=== PATIENT | male | born 1985 | race Caucasian/White ===

== ENCOUNTER 2021-03-17 21:02 | Emergency (ER) | payer BC, OTHER ==
[~2021-03-17] VITALS: Ht 172.7 cm; Wt 67.1 kg
[2021-03-17] MEDS ORDERED: LORazepam 0.5 MG (ATIVAN) TABLET PO STA (21:10)
[2021-03-17 21:11] VITALS: BP 141/90
--- NOTE | 2021-03-17 21:39 | Diagnostic Imaging Report ---
INDICATION: Shortness of breath and chest pain. Frontal chest obtained at 9:06 hours p.m. Heart and mediastinal silhouette are normal in appearance. The lungs are clear. There is no pneumothorax or pleural fluid. IMPRESSION: Negative chest. Dictated by: Dictated on workstation # [id number]
--- NOTE | 2021-03-17 21:42 | ED Chest Pain ---
General Chief Complaint: Chest Wall Stated Complaint: CHEST PAIN; SOB Nursing Triage Note: Pt states chest pain started 1.5 hrs ago with soa and facial numbness. Pt does state he is in the middle of a custody joyner and has been stressed. Pt noted to be hyperventilating and instructed to relax and deep breathe Nursing Sepsis Screen: No Definite Risk Source: patient Exam Limitations: no limitations History of Present Illness Date Seen by Provider: Mar 17, 2021 Time Seen by Provider: 21:05 Initial Comments Patient is a 35-year-old male who presents with substernal chest pain and shortness of breath. Symptoms began 90 minutes ago while driving. Patient was reports numbness around his lips and tingling and cramping in his hands. Patient states he has been under some acute anxiety over child custody issues and is in the process of changing custody of his daughter when symptoms began this evening. He reports chest pain with chest tightness difficulty breathing and dizziness.. Not fever cough, sore throat, abdominal pain, leg pain or swelling. Does not fevers chills or sweats. Other than a smoker. He denies history of asthma or chronic lung disease. No history of coronary disease, CHF or other cardiac related abnormalities. No other acute symptoms or complaints. Timing/Duration: 1-3 hours Severity/Quality: moderate Location: substernal Radiation: other Activities at Onset: other Prior CP/Workup: other Modifying Factors: improves with other Associated Symptoms: shortness of breath Allergies and Home Medications Allergies Coded Allergies: No Known Drug Allergies (Unverified , 03/17/21) Home Medications Lorazepam 2 Mg Tablet, 2 MG PO Q4H PRN for ANXIETY Prescribed by: HUGO BAUER on 03/17/212142 Last Action: New Order Patient Home Medication List Home Medication List Reviewed: Yes Review of Systems Review of Systems Constitutional: see HPI EENTM: See HPI Respiratory: See HPI Cardiovascular: See HPI Gastrointestinal: See HPI Genitourinary: See HPI Musculoskeletal: see HPI Skin: see HPI Psychiatric/Neurological: See HPI Endocrine: See HPI Hematologic/Lymphatic: See HPI All Other Systems Reviewed Negative Unless Noted: Yes Past Iohfleq-Yxitoy-Zbubus Hx Past Med/Social Hx: Reviewed Nursing Past Med/Soc Hx Patient Social History Alcohol Use: Occasionally Uses Smoking Status: Current Everyday Smoker Type Used: Cigarettes 2nd Hand Smoke Exposure: No Recent Infectious Disease Expo: No Recent Hopitalizations: No Seasonal Allergies Seasonal Allergies: No Past Medical History Surgeries: Yes (abscess) Respiratory: No Cardiac: No Neurological: No Genitourinary: No Gastrointestinal: No Musculoskeletal: No Endocrine: No HEENT: No Cancer: No Psychosocial: No Integumentary: No Blood Disorders: No Physical Exam Vital Signs Vital Signs - First Documented 03/17/21 21:11 Temp 36.4 Pulse 90 Resp 16 B/P (MAP) 141/90 (107) Pulse Ox 100 O2 Delivery Room Air Capillary Refill : Less Than 3 Seconds Height, Weight, BMI Height: '" Weight: lbs. oz. kg; 22.00 BMI Method: General Appearance: No Apparent Distress, Anxious HEENT: PERRL/EOMI, Normal ENT Inspection, Pharynx Normal Respiratory: Chest Non Tender, Lungs Clear, Normal Breath Sounds, No Accessory Muscle Use Cardiovascular: Regular Rate, Rhythm, No Edema Gastrointestinal: Normal Bowel Sounds, Soft Extremity: No Calf Tenderness, No Pedal Edema Neurologic/Psychiatric: Oriented x3, No Motor/Sensory Deficits, engraver optical frames II-XII Norm as Tested Focused Exam Sepsis Stage: Ruled Out Progress/Results/Core Measures Results/Orders My Orders Orders - HUGO BAUER DO Lorazepam Tablet (Ativan Tablet) (03/17/21 21:10) Chest 1 View Ap/Pa Only (03/17/21 21:10) Ekg Tracing (03/17/21 21:17) Vital Signs/I&O 03/17/21 21:11 Temp 36.4 Pulse 90 Resp 16 B/P (MAP) 141/90 (107) Pulse Ox 100 O2 Delivery Room Air Blood Pressure Mean: 107 Departure Communication (Admissions) EK03/17/2021 normal sinus rhythm, no acute ST-T wave changes. Patient with anxiety attack with hyperventilation syndrome. Symptoms fully resolved in the ED with treatment of Ativan. EKG chest x-ray otherwise unremarkable. Recommend supportive care with PCP follow-up. Return precautions reviewed. Patient verbalizes understanding agreement with discharge instructions prior to departure. Impression Primary Impression: Anxiety state Additional Impression: Acute hyperventilation syndrome Disposition: HOME, SELF-CARE Condition: Stable Departure-Patient Inst. Decision time for Depature: 21:41 Referrals: KEN MCCLENDON APRN (PCP) Primary Care Physician [facility] (Family) Primary Care Physician Patient Instructions: Anxiety, Adult (DC), Hyperventilation Add. Discharge Instructions: Please go home and rest. Take Ativan as needed and prescribed if symptoms recur. Do not attempt to drive or perform any other potential dangerous activities for several hours after taking Ativan. Follow-up with your PCP for further evaluation and management. Return to the ED if new or concerning symptoms. All discharge instructions reviewed with patient and/or family. Voiced understanding. Scripts Lorazepam (Ativan) 2 Mg Tablet 2 MG PO Q4H PRN for ANXIETY for 7 Days, #10 TAB Prov: HUGO BAUER DO 03/17/21 HUGO BAUER DO Mar 17, 2021 21:42
[2021-03-17] MEDS ORDERED: LORA-407 PO (21:43)
== END 2021-03-17 21:45 | disposition home or self-care (01) ==
LOC: ER FS 21:06
DX: F41.9 Anxiety disorder, unspecified (principal); F45.8 Other somatoform disorders; F17.210 Nicotine dependence, cigarettes, uncomplicated
CPT/HCPCS: 71045; 93005

== ENCOUNTER 2021-06-20 21:41 | Emergency (ER) | payer SELFPAY ==
[~2021-06-20 21:41] MED LIST: LORA-407 PO
[2021-06-20] MEDS ORDERED: KETOROLAC 30 MG/ML VIAL IVP ONE (22:00)
[2021-06-20] MEDS ORDERED: NS IV 1000 ML 1,000 ML IV SCH ×2 (22:00→22:45)
--- NOTE | 2021-06-20 22:04 | ED GU-Male ---
General Chief Complaint: - Urinary Stated Complaint: RT TESTICLE AND BACK PAIN, URINATING BLOOD Nursing Triage Note: Pt complaining of right flank pain with blood in his urine Source: patient Exam Limitations: no limitations History of Present Illness Date Seen by Provider: Jun 20, 2021 Time Seen by Provider: 21:48 Initial Comments Patient is a 36-year-old male who presents to the emergency room with a chief complaint of right flank pain onset today radiating down into his right testicle and urinating blood this evening. Patient tells me he has had a history of right testicular pain in the past with history of an epididymal cyst removal. He states he mckeon has pain at a "7" right now but when it is at its worst it is a "9". He has never had a kidney stone in the past. Denies burning with urination and states that he urinated just prior to arrival and it was still bloody. He has not taken anything for the pain. Nothing makes the pain any better or any worse. He is not nauseated. Normal bowel movements. No recent fevers or chills. He has had some cough and congestion and was Covid tested last week. It was negative. He has had his Covid vaccination. All other review of systems reviewed and negative except as stated. Timing/Duration: this morning Severity/Quality: severe, aching, sharp Location: right flank Radiation: groin, scrotal Activities at Onset: none Modifying Factors: Worsens With Movement Associated Symptoms: abdominal pain Allergies and Home Medications Allergies Coded Allergies: No Known Drug Allergies (Unverified , 03/17/21) Home Medications Hydrocodone/Acetaminophen 1 Each Tablet, 1 TAB PO Q6H PRN for PAIN-MODERATE (5- 7) Prescribed by: KASSIE WHITFIELD on 06/20/212238 Lorazepam 2 Mg Tablet, 2 MG PO Q4H PRN for ANXIETY Prescribed by: HUGO BAUER on 03/17/212142 Ondansetron 4 Mg Tab.rapdis, 4 MG PO Q8H PRN for nausea Prescribed by: KASSIE WHITFIELD on 06/20/212238 Tamsulosin HCl 0.4 Mg Cap, 0.4 MG PO HS Prescribed by: KASSIE WHITFIELD on 06/20/212238 Patient Home Medication List Home Medication List Reviewed: Yes Review of Systems Review of Systems Constitutional: see HPI EENTM: no symptoms reported Respiratory: no symptoms reported Cardiovascular: no symptoms reported Gastrointestinal: abdominal pain Genitourinary: hematuria, other (right scrotal pain) Musculoskeletal: no symptoms reported Skin: no symptoms reported Psychiatric/Neurological: No Symptoms Reported All Other Systemes Reviewed Negative Unless Noted: Yes Past Wrolyfz-Coqfwn-Wgswro Hx Patient Social History Tobacco Use?: No Use of E-Cig and/or Vaping dev: No Substance use?: No Alcohol Use?: No Pt feels they are or have been: No Seasonal Allergies Seasonal Allergies: No Past Medical History Surgeries: Yes (abscess) Respiratory: No Cardiac: No Neurological: No Genitourinary: No Gastrointestinal: No Musculoskeletal: No Endocrine: No HEENT: No Cancer: No Psychosocial: No Integumentary: No Blood Disorders: No Physical Exam Vital Signs Vital Signs - First Documented 06/20/21 21:45 Temp 36.6 Pulse 57 Resp 16 B/P (MAP) 128/78 (95) Pulse Ox 100 O2 Delivery Room Air Capillary Refill : Less Than 3 Seconds Height, Weight, BMI Height: '" Weight: lbs. oz. kg; 22.00 BMI Method: General Appearance: WD/WN, no apparent distress Cardiovascular: regular rate, rhythm Respiratory: lungs clear, normal breath sounds, no respiratory distress Gastrointestinal: tenderness (mild right flank tenderness) Male: normal genitalia, testicular tenderness (right epidiymal tenderness; normal cremastericss) Extremities: normal range of motion, normal inspection Neurologic/Psychiatric: alert, normal mood/affect, oriented x 3 Skin: normal color, warm/dry Progress/Results/Core Measures Suspected Sepsis SIRS Temperature: Pulse: 57 Respiratory Rate: 16 Blood Pressure 128 /78 Mean: 95 Laboratory Tests 06/20/21 22:03: Creatinine 0.96 Results/Orders Lab Results Laboratory Tests Test 06/20/21 22:03 06/20/21 23:23 Range/Units Sodium Level 138 135-145 MMOL/L Potassium Level 4.0 3.6-5.0 MMOL/L Chloride Level 100 98-107 MMOL/L Carbon Dioxide Level 26 21-32 MMOL/L Anion Gap 12 5-14 MMOL/L Blood Urea Nitrogen 10 7-18 MG/DL Creatinine 0.96 0.60-1.30 MG/DL Estimat Glomerular Filtration Rate 90 BUN/Creatinine Ratio 10 Glucose Level 106 H 70-105 MG/DL Calcium Level 9.3 8.5-10.1 MG/DL Urine Color YUVAL H Urine Clarity SL CLOUDY Urine pH 5.0 5-9 Urine Specific Epsom 1.020 1.016-1.022 Urine Protein 1+ H NEGATIVE Urine Glucose (UA) NEGATIVE NEGATIVE Urine Ketones NEGATIVE NEGATIVE Urine Nitrite NEGATIVE NEGATIVE Urine Bilirubin NEGATIVE NEGATIVE Urine Urobilinogen 0.2 < = 1.0 MG/DL Urine Leukocyte Esterase NEGATIVE NEGATIVE Urine RBC (Auto) 3+ H NEGATIVE Urine RBC 10-25 H /HPF Urine WBC 0-2 /HPF Urine Squamous Epithelial Cells 0-2 /HPF Urine Crystals NONE /LPF Urine Bacteria MODERATE H /HPF Urine Casts NONE /LPF Urine Mucus NEGATIVE /LPF Urine Culture Indicated YES My Orders Orders - KASSIE WHITFIELD MD Ed Iv/Invasive Line Start (06/20/21 21:57) Basic Metabolic Panel (06/20/21 21:57) Abdomen (Kub) 1 View (06/20/21 21:57) Ns Iv 1000 Ml (Sodium Chloride 0.9%) (06/20/21 22:00) Ketorolac Injection (Toradol Injection) (06/20/21 22:00) Ct Abd/Pelvis Wo(Kidney Stone) (06/20/21 21:57) Ua Culture If Indicated (06/20/21 21:57) Ns Iv 1000 Ml (Sodium Chloride 0.9%) (06/20/21 22:45) Morphine Injection (Morphine Injection (06/20/21 22:42) Ondansetron Injection (Zofran Injectio (06/20/21 22:45) Urine Culture (06/20/21 23:23) Rx-Hydrocodone/Apap 5-325 Mg (Rx-Vicodin (06/21/21 00:00) Rx-Ondansetron Po (Rx-Zofran Po) (06/20/21 23:48) Medications Given in ED Current Medications Medications Dose Ordered Sig/Nohemi Route Start Time Stop Time Status Last Admin Dose Admin Ketorolac Tromethamine 15 mg ONCE ONCE IVP 06/20/21 22:00 06/20/21 22:01 DC 06/20/21 22:06 15 MG Ondansetron HCl 4 mg ONCE ONCE IVP 06/20/21 22:45 06/20/21 22:46 DC 06/20/21 22:49 4 MG Vital Signs/I&O 06/20/21 21:45 Temp 36.6 Pulse 57 Resp 16 B/P (MAP) 128/78 (95) Pulse Ox 100 O2 Delivery Room Air Capillary Refill : Less Than 3 Seconds Blood Pressure Mean: 95 Progress Note : Time: 22:39 Progress Note Patient reevaluated states the pain in his testicle is improving he still has pain in his right flank. He is finishing up the first liter of fluids we will give him a second so that he has the urge to urinate and we can check a urinalysis before he leaves. Patient is noted to have two 3 mm kidney stones at the level of the right mid ureter with mild hydronephrosis. We will give him some morphine and some Zofran to further alleviate his pain. He will be sent home with medications as well. 2358 Patient is feeling better. Up and ambulatory to the restroom. Urine is reviewed he has moderate bacteria but mostly hematuria in his urine. Urine flagged for culture. Renal function is normal. Patient given good return precautions. Advised to take Flomax and pain meds as needed. Nausea medications also sent with the patient. Patient is comfortable with plan of care all questions were sought and answered. Patient is stable for discharge. Diagnostic Imaging Diagonstic Imaging: CT Plain Films/CT/US/NM/MRI: abdomen, pelvis Comments CT abdomen and pelvis renal stone protocol, interpretation by stat read shows mild right hydronephrosis with 2 small approximately 3 mm adjacent stones in the mid ureter. There is mild mural thickening of the descending and sigmoid colon although the colon is decompressed at this level. Normal appendix. Urinary bladder unremarkable [facility], [place] NAME: [facility] REC#: [id number] PT STATUS: REG ER : 1985 PHYSICIAN: KASSIE WHITFIELD MD ADMIT DATE: 06/20/21/ER FS Draft Date of Exam:06/20/21 CT ABD/PELVIS WO(KIDNEY STONE) EXAMINATION: CT abdomen and pelvis without contrast. TECHNIQUE: Multiple contiguous axial images were obtained through the abdomen and pelvis without the use of intravenous contrast. All CT scans use one or more of the following dose optimizing techniques: automated exposure control, MA and/or KvP adjustment based on patient size and exam type or iterative reconstruction. HISTORY: Right flank pain and hematuria COMPARISON: None available. FINDINGS: Limited views of the lower thorax are unremarkable. The liver is normal without focal lesion. There is no biliary ductal dilation. Gallbladder is normal. Pancreas is normal. Spleen is normal. Adrenal glands are normal. There are two stones in the proximal right ureter measuring 2 mm each with moderate right-sided hydroureteronephrosis. Urinary bladder is normal. Visualized bowel is normal in caliber without obstruction or inflammation. No free fluid or air. No abdominal or pelvic lymphadenopathy. Aorta is normal in caliber without aneurysm. There are no suspicious osseus lesions. IMPRESSION: 1. There are two nonobstructing 2 mm stones in the proximal right ureter with moderate right-sided hydroureteronephrosis. Dictated on workstation # [id number] Dict: 06/20/212231 Trans: 06/20/21 [address] [facility] [id number] Interpreted by: IFEANYI COKER MD Electronically signed by: [facility] [place] NAME: [facility] REC#: [id number] PT STATUS: REG ER : 1985 PHYSICIAN: KASSIE WHITFIELD MD ADMIT DATE: 06/20/21/ER FS Signed Date of Exam:06/20/21 ABDOMEN (KUB) 1 VIEW EXAMINATION: Abdomen 1 view HISTORY: Right flank pain and hematuria COMPARISON: None available. FINDINGS: Bowel gas pattern is normal. There are no calcifications projecting over the kidneys. There are multiple phleboliths in the pelvis. IMPRESSION: 1. Multiple phleboliths in the pelvis. No definite calcifications seen projecting over the ureters. Dictated by: Dictated on workstation # [id number] Dict: 06/20/21 2238 Trans: 06/20/21 233 AC [id number] Interpreted by: IFEANYI COKER MD Electronically signed by: IFEANYI COKER MD 06/20/21 2334 Departure Impression Primary Impression: Ureterolithiasis Disposition: 01 HOME, SELF-CARE Condition: Stable Departure-Patient Inst. Decision time for Depature: 22:35 Referrals: NO,LOCAL PHYSICIAN (PCP/Family) Primary Care Physician Patient Instructions: Kidney Stones in Adults Scripts Ondansetron (Ondansetron Odt) 4 Mg Tab.rapdis 4 MG PO Q8H PRN for nausea, #15 TAB Prov: KASSIE WHITFIELD MD 06/20/21 Hydrocodone/Acetaminophen (Hydrocodone-Acetamin 5-325 mg) 1 Each Tablet 1 TAB PO Q6H PRN for PAIN-MODERATE (5-7), #15 TAB Prov: KASSIE WHITFIELD MD 06/20/21 Tamsulosin HCl (Flomax) 0.4 Mg Cap 0.4 MG PO HS for 30 Days, #30 CAP Prov: KASSIE WHITFIELD MD 06/20/21 Copy Copies To 1: JAZLYN BAKER MD, KATHRYN M MD Jun 20, 2021 22:04
[2021-06-20 22:30] LABS: CALCIUM 9.3 MG/DL (8.5-10.1); CREATININE SERUM 0.96 MG/DL (0.60-1.30)
--- NOTE | 2021-06-20 22:36 | Diagnostic Imaging Report ---
EXAMINATION: CT abdomen and pelvis without contrast. TECHNIQUE: Multiple contiguous axial images were obtained through the abdomen and pelvis without the use of intravenous contrast. All CT scans use one or more of the following dose optimizing techniques: automated exposure control, MA and/or KvP adjustment based on patient size and exam type or iterative reconstruction. HISTORY: Right flank pain and hematuria COMPARISON: None available. FINDINGS: Limited views of the lower thorax are unremarkable. The liver is normal without focal lesion. There is no biliary ductal dilation. Gallbladder is normal. Pancreas is normal. Spleen is normal. Adrenal glands are normal. There are two stones in the proximal right ureter measuring 2 mm each with moderate right-sided hydroureteronephrosis. Urinary bladder is normal. Visualized bowel is normal in caliber without obstruction or inflammation. No free fluid or air. No abdominal or pelvic lymphadenopathy. Aorta is normal in caliber without aneurysm. There are no suspicious osseus lesions. IMPRESSION: 1. There are two nonobstructing 2 mm stones in the proximal right ureter with moderate right-sided hydroureteronephrosis. Dictated by: Dictated on workstation # [id number]
[2021-06-20] MEDS ORDERED: ONDA4TAB11 PO (22:39)
[2021-06-20] MEDS ORDERED: TMSL.4C PO (22:39)
[2021-06-20] MEDS ORDERED: ACHD5005 PO (22:39)
--- NOTE | 2021-06-20 22:41 | Diagnostic Imaging Report ---
EXAMINATION: Abdomen 1 view HISTORY: Right flank pain and hematuria COMPARISON: None available. FINDINGS: Bowel gas pattern is normal. There are no calcifications projecting over the kidneys. There are multiple phleboliths in the pelvis. IMPRESSION: 1. Multiple phleboliths in the pelvis. No definite calcifications seen projecting over the ureters. Dictated by: Dictated on workstation # [email or web address]
[2021-06-20] MEDS ORDERED: morphine INJ 10 MG/ML 1ML (SYR OR VIAL) IVP STA (22:42)
[2021-06-20] MEDS ORDERED: ONDANSETRON 4 MG/2 ML (SDV) Z0FRAN IVP ONE (22:45)
[2021-06-20 23:43] LABS: BILIRUBIN,URINE NEGATIVE (NEGATIVE); CLARITY,URINE SL CLOUDY; COLOR,URINE AMBER; GLUCOSE, URINE (UA) NEGATIVE (NEGATIVE); KETONES,URINE NEGATIVE (NEGATIVE); LEUKOCYTE ESTERASE ,URINE NEGATIVE (NEGATIVE); NITRITE,URINE NEGATIVE (NEGATIVE); PROTEIN,URINE 1+ (NEGATIVE); WBC,URINE 0-2 /HPF
[2021-06-20 23:44] LABS: BACTERIA,URINE MODERATE /HPF; SQUAMOUS EPITHELIAL CELL,UR 0-2 /HPF
[2021-06-20] MEDS ORDERED: RX-ONDANSETRON 4 MG ODT (ZOFRAN) PPK #4 PO STA (23:48)
[2021-06-21 00:01] VITALS: BP 118/72
== END 2021-06-21 | disposition home or self-care (01) ==
LOC: EDUNIT# 21:41 → ER FS 21:43
DX: N13.2 Hydronephrosis with renal and ureteral calculous obstruction (principal); Z20.822 Contact with and (suspected) exposure to COVID-19
CPT/HCPCS: 36415; 74018; 74176; 80048; 81000; 87088